=== PATIENT | female | born 1950 | race Caucasian/White ===

== ENCOUNTER 2016-06-16 07:58 | Day surgery (SDC) | payer MEDICAID ==
[2016-06-11 13:49] VITALS: BMI 25.8
[~2016-06-16 07:58] MED LIST: LACTATED RINGERS 1,000 ML IV SCH
[2016-06-16 08:22] VITALS: RESP 16; TEMP 97.7
--- NOTE | 2016-06-16 08:30 | P.GSHP ---
History of Present Illness H&P Date: 06/16/16 Chief Complaint: Colon polyp Patient today for colonoscopy. Her last colonoscopy was 5 years ago. Rectal polyp was found at that time. She does have a family history of colon cancer in her grandmother. No bowel related complaints. Past Medical History Additional Past Medical History / Comment(s): hx of polyps, seasonal allergies History of Any Multi-Drug Resistant Organisms: None Reported Past Surgical History: Adenoidectomy, Appendectomy, Tonsillectomy Additional Past Surgical History / Comment(s): D&C X6, RUPUTURED TUBAL , I&D FOR ABSCESS WOUND, ZULY CATARACTS, ZULY BUNIONECTOMY Past Anesthesia/Blood Transfusion Reactions: No Reported Reaction Past Psychological History: No Psychological Hx Reported Smoking Status: Never smoker Past Alcohol Use History: Rare Past Drug Use History: None Reported - Past Family History Mother Family Medical History: No Reported History Medications and Allergies Home Medications Medication Instructions Recorded Confirmed Type Fluticasone Nasal Feura Bush [Flonase 1 spr EA NOSTRIL DAILY 06/11/16 06/16/16 History Nasal Feura Bush] Allergies Allergy/AdvReac Type Severity Reaction Status Date / Time No Known Allergies Allergy Verified 06/11/16 13:44 Surgical - Exam Vital Signs Temp Pulse Resp BP Pulse Ox 97.7 F 88 16 137/86 99 06/16/16 08:19 06/16/16 08:19 06/16/16 08:19 06/16/16 08:19 06/16/16 08:19 Physical exam: General: Well-developed, well-nourished HEENT: Normocephalic, sclerae nonicteric Abdomen: Nontender, nondistended Extremities: No edema Neuro: Alert and oriented Assessment and Plan (1) Colon polyps Narrative/Plan: Will proceed with colonoscopy at this time. Status: Acute
[2016-06-16] MEDS ORDERED: PROPOFOL 10 MG/ML 20 ML VIAL IV ONE (08:31)
[2016-06-16] MEDS ORDERED: LIDOCAINE 1% INJ 10MG/ML (20 ML MDV) ONE (08:31)
--- NOTE | 2016-06-16 08:52 | P.PCN ---
Date of Procedure: 06/16/16 Procedure(s) Performed: PREOPERATIVE DIAGNOSIS: Colon polyps POSTOPERATIVE DIAGNOSIS: Transverse colon polyp 2 PROCEDURE: Colonoscopy with biopsy ANESTHESIA: MAC SURGEON: Saturnino Blake M.D. SPECIMENS: Transverse colon polyp ENDOSCOPIC PROCEDURE: The patient was placed on the endoscopy table in the left decubitus position. The Olympus colonoscope was inserted into the anus and passed under direct visualization to the base of the cecum. The appendiceal orifice was visualized. From that point the scope was slowly withdrawn inspecting all surfaces carefully. There were no neoplastic inflammatory or polypoid lesions throughout the cecum and ascending colon. The transverse colon there were 2 small polyps that were both removed using the biopsy forceps. The remainder of the transverse, descending, sigmoid and rectum appeared normal. There was no diverticulosis noted. Overall the patient 's prep was suboptimal. Some retained stool was seen scattered throughout the colon. Digital rectal examination was normal. The patient was taken to the recovery room in stable condition per anesthesia guidelines. RECOMMENDATIONS: Await biopsy results to determine the timing of the next endoscopy.
[2016-06-16 09:08] VITALS: BP 139/67; PULSE 69
== END 2016-06-16 09:37 | disposition home or self-care (01) ==
LOC: ORWHC2ENDO 07:58
PROVIDERS: ATTEND Surgery
DX: Z12.11 Encounter for screening for malignant neoplasm of colon (principal); D12.3 Benign neoplasm of transverse colon; Z86.010 Personal history of colon polyps; Z80.0 Family history of malignant neoplasm of digestive organs; Z79.51 Long term (current) use of inhaled steroids; Z91.09 Other allergy status, other than to drugs and biological substances
CPT/HCPCS: 88305; 45380; J2001; J2704; 99153

== ENCOUNTER → 2017-05-25 | Outpatient (CLI) | payer MEDICARE, OTHER ==
--- NOTE | 2017-05-27 10:57 | MM ---
Reason for exam: screening (asymptomatic). Last mammogram was performed 1 year and 1 month ago. History: Patient is postmenopausal. Family history of breast cancer in 2 paternal aunts, breast cancer in aunt, breast cancer in mother at age 77, and premenopausal breast cancer in cousin at age 40. Benign right mammotome panel of the right breast, January 08, 2013. Benign stereotactic core biopsy of the left breast, November 08, 2003. Benign stereotactic core biopsy of the left breast, October 27, 2000. 3 benign cyst aspirations of the right breast. 2 benign core biopsies of the left breast. Benign excisional biopsy of the left breast. Took hormonal contraceptives for 3 years. Physical Findings: A clinical breast exam by your physician is recommended on an annual basis and results should be correlated with mammographic findings. MG 3D Screening Mammo W/Cad Bilateral CC and MLO view(s) were taken. Prior study comparison: May 05, 2016, bilateral MG 3d screening mammo w/cad. April 18, 2015, bilateral MG screening mammo w CAD. Previous mammotome biopsy in the right and left breast. There is chronic nodularity in the left breast. No significant changes when compared with prior studies. ASSESSMENT: Benign, BI-RAD 2 RECOMMENDATION: Routine screening mammogram of both breasts in 1 year.
== END | disposition home or self-care (01) ==
LOC: RADMAMWWP 13:25
PROVIDERS: ATTEND Obstetrics & Gynecology
DX: Z12.31 Encounter for screening mammogram for malignant neoplasm of breast (principal); Z80.3 Family history of malignant neoplasm of breast
CPT/HCPCS: 77063; G0202

== ENCOUNTER → 2017-06-10 | Outpatient (CLI) | payer MEDICARE, OTHER | END | disposition home or self-care (01) | LOC: LABWHC1 07:38 | PROVIDERS: ATTEND Obstetrics & Gynecology | DX: E78.00 Pure hypercholesterolemia, unspecified (principal); R53.83 Other fatigue; Z13.220 Encounter for screening for lipoid disorders; Z13.1 Encounter for screening for diabetes mellitus | CPT/HCPCS: 36415; 80061; 82947; 84443 ==

== ENCOUNTER → 2018-07-24 | Outpatient (CLI) | payer MEDICARE, OTHER ==
--- NOTE | 2018-07-26 09:19 | MM ---
Reason for exam: screening (asymptomatic). Last mammogram was performed 1 year and 2 months ago. History: Patient is postmenopausal. Family history of breast cancer in 2 paternal aunts, breast cancer in aunt, breast cancer in mother at age 77, and premenopausal breast cancer in cousin at age 40. Benign right mammotome panel of the right breast, January 08, 2013. Benign stereotactic core biopsy of the left breast, November 08, 2003. Benign stereotactic core biopsy of the left breast, October 27, 2000. 3 benign cyst aspirations of the right breast. 2 benign core biopsies of the left breast. Benign excisional biopsy of the left breast. Took hormonal contraceptives for 3 years. Physical Findings: A clinical breast exam by your physician is recommended on an annual basis and results should be correlated with mammographic findings. MG 3D Screening Mammo W/Cad Bilateral CC and MLO view(s) were taken. Prior study comparison: May 25, 2017, bilateral MG 3d screening mammo w/cad. May 05, 2016, bilateral MG 3d screening mammo w/cad. There are scattered fibroglandular densities. Previous mammotome biopsy in the right and left breast. There is chronic nodularity bilaterally. 1.2 circumscribed nodule 12-1 o'clock right breast is new. ASSESSMENT: Incomplete: need additional imaging evaluation, BI-RAD 0 RECOMMENDATION: Ultrasound of the right breast. [facility] will attempt to contact patient to return for ultrasound.
== END | disposition home or self-care (01) ==
LOC: RADMAMWWP 12:44
PROVIDERS: ATTEND Obstetrics & Gynecology
DX: Z12.31 Encounter for screening mammogram for malignant neoplasm of breast (principal); Z80.3 Family history of malignant neoplasm of breast
CPT/HCPCS: 77063; 77067

== ENCOUNTER → 2018-08-01 | Outpatient (CLI) | payer MEDICARE, OTHER | END | disposition home or self-care (01) | LOC: LABWHC1 09:09 | PROVIDERS: ATTEND Obstetrics & Gynecology | DX: Z13.1 Encounter for screening for diabetes mellitus (principal); Z13.220 Encounter for screening for lipoid disorders | CPT/HCPCS: 36415; 80061; 82947; 84443 ==

== ENCOUNTER → 2018-08-01 | Outpatient (CLI) | payer MEDICARE, OTHER ==
--- NOTE | 2018-08-01 10:53 | USB ---
Reason for exam: additional evaluation requested from abnormal screening. History: Patient is postmenopausal. Family history of breast cancer in 2 paternal aunts, breast cancer in aunt, breast cancer in mother at age 77, and premenopausal breast cancer in cousin at age 40. Benign right mammotome panel of the right breast, January 08, 2013. Benign stereotactic core biopsy of the left breast, November 08, 2003. Benign stereotactic core biopsy of the left breast, October 27, 2000. 3 benign cyst aspirations of the right breast. 2 benign core biopsies of the left breast. Benign excisional biopsy of the left breast. Took hormonal contraceptives for 3 years. Physical Findings: Nurse Summary: palpable lump (nurse dw). US Breast Workup Limited RT Right limited breast ultrasound including focal area of concern, retroareolar and axilla demonstrates a 1.3 x 0.6 x 1.0cm cystic, benign lesion at 12 o'clock likely corresponds to the mammographic finding. Precautionary 6 month follow up recommended. These results were verbally communicated with the patient and result sheet given to the patient on 08/01/18. ASSESSMENT: Probably benign, BI-RAD 3 RECOMMENDATION: Follow-up diagnostic mammogram of the right breast in 6 months.
== END | disposition home or self-care (01) ==
LOC: RADUSWWP 09:57
PROVIDERS: ATTEND Obstetrics & Gynecology
DX: R92.8 Other abnormal and inconclusive findings on diagnostic imaging of breast (principal)

== ENCOUNTER → 2019-02-21 | Outpatient (CLI) | payer MEDICARE, OTHER ==
--- NOTE | 2019-02-22 08:41 | MM ---
Reason for exam: follow-up at short interval from prior study. Last mammogram was performed 7 months ago. History: Patient is postmenopausal. Family history of breast cancer in mother at age 78, breast cancer in 2 paternal aunts, breast cancer in aunt, and premenopausal breast cancer in cousin at age 40. Benign right mammotome panel of the right breast, January 08, 2013. Benign stereotactic core biopsy of the left breast, November 08, 2003. Benign stereotactic core biopsy of the left breast, October 27, 2000. 3 benign cyst aspirations of the right breast. 2 benign core biopsies of the left breast. Benign excisional biopsy of the left breast. Took hormonal contraceptives for 3 years. Physical Findings: Nurse did not find any significant physical abnormalities on exam. MG 3D Diag Mammo W/Cad RT CC and MLO view(s) were taken of the right breast. Prior study comparison: July 24, 2018, bilateral MG 3d screening mammo w/cad. May 25, 2017, bilateral MG 3d screening mammo w/cad. The breast tissue is heterogeneously dense. This may lower the sensitivity of mammography. There is chronic nodularity in the right breast. No significant changes when compared with prior studies. ASSESSMENT: Benign, BI-RAD 2 RECOMMENDATION: Return to routine screening mammogram schedule for both breasts.
== END | disposition home or self-care (01) ==
LOC: RADMAMWWP 10:12
PROVIDERS: ATTEND Obstetrics & Gynecology
DX: R92.8 Other abnormal and inconclusive findings on diagnostic imaging of breast (principal)
CPT/HCPCS: 77065; G0279; 77061

== ENCOUNTER → 2019-07-31 | Outpatient (CLI) | payer MEDICARE, OTHER ==
--- NOTE | 2019-07-31 15:25 | BD ---
EXAMINATION TYPE: Axial Bone Density DATE OF EXAM: 07/31/2019 COMPARISON: 2016 CLINICAL HISTORY: Height: 68 inches Weight: 177.6 FRAX RISK QUESTIONS: Alcohol (3 or more units per day): no Family History (Parent hip fracture): no Glucocorticoids (More than 3mos): no (Ex: prednisone, prednisolone, methylprednisolone, dexamethasone, and hydrocortisone). History of Fracture in Adulthood: yes Secondary Osteoporosis: 1. Type 1 Diabetes: no 2. Hyperthyroidism: no 3. Menopause before 45: no 4. Malnutrition: no 5. Chronic liver disease: no Rheumatoid Arthritis: no Current Tobacco Use: no RISK FACTORS HISTORY OF: Family History of Osteoporosis: no Active: yes Diet low in dairy products/other sources of calcium: no Postmenopausal woman: yes Take estrogen and/or progesterone medications: not now How long: hormonal contraceptives about 3 years Lost more than 2 inches in height since high school: no Frequent falls: no Poor Health: no Hyperparathyroidism: no Adrenal Insufficiency: no MEDICATIONS: Prednisone or other steroids: no Thyroid Medications: no Osteoporosis Medications: not now Which medication: Fosamax How Long: more than a year, but not very long Additional Medications: Additional History: EXAM MEASUREMENTS: Bone mineral densitometry was performed using the [employer] System. Bone mineral density as measured about the Lumbar spine is: ----- L1-L4(G/cm2): 1.175 T Score Values are as follows: ----- L2: 0.0 ----- L3: -0.1 ----- L4: -0.6 ----- L1-L4: 0.0 Bone mineral density has: Increased 3.6% since study of: 05/05/2016 Bone mineral density about the R hip (g/cm2): 0.928 Bone mineral density about the L hip (g/cm2): 0.947 T Score values are as follows: -----R Neck: -0.8 -----L Neck: -0.7 -----R Total: -0.1 -----L Total: 0.0 Bone mineral density has: Increased 0.6% since study of: 05/05/2016 IMPRESSION: Normal (Values between +1 and -1 indicate normal bone mass). Consider repeating this study in 5 year s or sooner if there is some new clinical indication. NOTE: T-SCORE=SD OF THE YOUNG ADULT MEAN.
--- NOTE | 2019-08-01 09:08 | MM ---
Reason for exam: screening (asymptomatic). Last mammogram was performed 5 months ago. History: Patient is postmenopausal. Family history of breast cancer in mother at age 78, breast cancer in 2 paternal aunts, breast cancer in aunt, and premenopausal breast cancer in paternal cousin at age 40. Benign right mammotome panel of the right breast, January 08, 2013. Benign stereotactic core biopsy of the left breast, November 08, 2003. Benign stereotactic core biopsy of the left breast, October 27, 2000. 3 benign cyst aspirations of the right breast. 2 benign core biopsies of the left breast. Benign excisional biopsy of the left breast. Took hormonal contraceptives for 3 years. Physical Findings: A clinical breast exam by your physician is recommended on an annual basis and results should be correlated with mammographic findings. MG 3D Screening Mammo W/Cad Bilateral CC, MLO, and XCCL view(s) were taken. Prior study comparison: February 21, 2019, right breast MG 3d diag mammo w/cad RT. August 01, 2018, right breast US breast workup limited RT. July 24, 2018, bilateral MG 3d screening mammo w/cad. May 25, 2017, bilateral MG 3d screening mammo w/cad. The breast tissue is heterogeneously dense. This may lower the sensitivity of mammography. Finding: There are typically benign circumscribed round oval masses in both breasts similar priors other than growth of the largest on the right, previously proven cyst on ultrasound. There are benign appearing calcifications. No suspicious abnormality. Bilateral biopsy markers. No significant changes in finding since February 21, 2019, August 01, 2018, July 24, 2018, and May 25, 2017. ASSESSMENT: Benign, BI-RAD 2 RECOMMENDATION: Routine screening mammogram of both breasts in 1 year.
== END | disposition home or self-care (01) ==
LOC: RADMAMWWP 08:47
PROVIDERS: ATTEND Obstetrics & Gynecology
DX: Z12.31 Encounter for screening mammogram for malignant neoplasm of breast (principal); N95.1 Menopausal and female climacteric states; Z13.228 Encounter for screening for other metabolic disorders; E78.00 Pure hypercholesterolemia, unspecified
CPT/HCPCS: 36415; 77063; 77067; 77080; 80061; 82306

== ENCOUNTER → 2020-09-03 | Outpatient (CLI) | payer MEDICARE ==
[2020-09-03 20:29] LABS: HCT 46.5 % (37.2-46.3); HGB 15.6 g/dL (12.0-15.0); MCH 31.4 pg (27.0-32.0); MCHC 33.5 g/dL (32.0-37.0); MCV 93.6 fL (80.0-97.0); Mean Platelet Volume 11.4 fL (9.5-12.2); Platelet Count 179 X 10*3/uL (140-440); RBC 4.97 X 10*6/uL (4.10-5.20); RDW 13.6 % (11.5-14.5); WBC 5.61 X 10*3/uL (4.50-10.00)
[2020-09-03 21:09] LABS: African American GFR (CKD) 75.6 (60.0-200.0); Albumin 4.9 g/dL (3.80-4.90); Albumin/Globulin Ratio 2.13 (1.60-3.17); Anion Gap 15.4 mmol/L (4.00-12.00); BUN/Creat Ratio 16.67 Ratio (12.00-20.00); Calcium 9.7 mg/dL (8.7-10.3); Carbon Dioxide 21.6 mmol/L (21.6-31.8); Chol/HDL Ratio 3.3; Globulin 2.3 g/dL (1.6-3.3); LDL Cholesterol,Calculated 114.2 mg/dL (0.0-131.0); Non-African American GFR(CKD) 65.2 (60.0-200.0); Potassium 4.2 mmol/L (3.5-5.5); Total Bilirubin 0.6 mg/dL (0.3-1.2); Total Protein 7.2 g/dL (6.2-8.2); VLDL Calculation 32.8 mg/dL (5.00-40.00)
[2020-09-03 22:25] LABS: Hemoglobin A1C 5.4 % (4.0-6.0)
== END | disposition home or self-care (01) ==
LOC: LABWHC1 09:38
PROVIDERS: ATTEND Obstetrics & Gynecology
DX: Z13.220 Encounter for screening for lipoid disorders (principal); Z13.1 Encounter for screening for diabetes mellitus
CPT/HCPCS: 36415; 80053; 80061; 82306; 83036; 84439; 84443; 84479; 85027

== ENCOUNTER → 2020-09-12 | Outpatient (CLI) | payer MEDICARE ==
--- NOTE | 2020-09-16 07:37 | MM ---
Reason for exam: screening (asymptomatic). Last mammogram was performed 1 year and 1 month ago. History: Patient is postmenopausal. Family history of breast cancer in mother at age 78, breast cancer in 2 paternal aunts, breast cancer in aunt, and premenopausal breast cancer in paternal cousin at age 40. Benign right mammotome panel of the right breast, January 08, 2013. Benign stereotactic core biopsy of the left breast, November 08, 2003. Benign stereotactic core biopsy of the left breast, October 27, 2000. 3 benign cyst aspirations of the right breast. 2 benign core biopsies of the left breast. Benign excisional biopsy of the left breast. Took hormonal contraceptives for 3 years. Physical Findings: A clinical breast exam by your physician is recommended on an annual basis and results should be correlated with mammographic findings. MG 3D Screening Mammo W/Cad Bilateral CC and MLO view(s) were taken. Prior study comparison: July 31, 2019, bilateral MG 3d screening mammo w/cad. February 21, 2019, right breast MG 3d diag mammo w/cad RT. The breast tissue is heterogeneously dense. This may lower the sensitivity of mammography. Previous mammotome biopsy in the right and left breast. There is chronic nodularity bilaterally. No significant changes when compared with prior studies. ASSESSMENT: Benign, BI-RAD 2 RECOMMENDATION: Routine screening mammogram of both breasts in 1 year.
== END | disposition home or self-care (01) ==
LOC: RADMAMWWP 13:26
PROVIDERS: ATTEND Obstetrics & Gynecology
DX: Z12.31 Encounter for screening mammogram for malignant neoplasm of breast (principal); Z80.3 Family history of malignant neoplasm of breast; Z78.0 Asymptomatic menopausal state
CPT/HCPCS: 77063; 77067

== ENCOUNTER → 2021-08-18 | Outpatient (CLI) | payer MEDICARE ==
[2021-08-18 10:31] LABS: HCT 45.2 % (37.2-46.3); MCH 30.5 pg (27.0-32.0); MCHC 33.2 g/dL (32.0-37.0); MCV 91.9 fL (80.0-97.0); Mean Platelet Volume 10.5 fL (9.5-12.2); NRBC Per 100 WBC 0 /100 WBCS (0.0-0.0); Platelet Count 170 X 10*3/uL (140-440); RBC 4.92 X 10*6/uL (4.10-5.20); RDW 13.6 % (11.5-14.5); WBC 5.05 X 10*3/uL (4.50-10.00)
[2021-08-18 10:57] LABS: Chol/HDL Ratio 3.03 Ratio; Glucose 104 mg/dL (70-110); LDL Cholesterol,Calculated 115.9 mg/dL (0.0-131.0)
== END | disposition home or self-care (01) ==
LOC: LABWHC1 07:46
PROVIDERS: ATTEND Obstetrics & Gynecology
DX: Z13.0 Encounter for screening for diseases of the blood and blood-forming organs and certain disorders involving the immune mechanism (principal); Z13.1 Encounter for screening for diabetes mellitus; Z13.228 Encounter for screening for other metabolic disorders; Z13.220 Encounter for screening for lipoid disorders; E78.00 Pure hypercholesterolemia, unspecified; R53.83 Other fatigue
CPT/HCPCS: 36415; 80061; 82306; 82947; 85027

== ENCOUNTER → 2021-09-14 | Outpatient (CLI) | payer MEDICARE ==
--- NOTE | 2021-09-16 10:44 | MM ---
Reason for exam: screening (asymptomatic). Last mammogram was performed 1 year ago. History: Patient is postmenopausal. Family history of breast cancer in mother at age 78, breast cancer in 2 paternal aunts, breast cancer in aunt, and premenopausal breast cancer in paternal cousin at age 40. Benign right mammotome panel of the right breast, January 08, 2013. Benign stereotactic core biopsy of the left breast, November 08, 2003. Benign stereotactic core biopsy of the left breast, October 27, 2000. 3 benign cyst aspirations of the right breast. 2 benign core biopsies of the left breast. Benign excisional biopsy of the left breast. Took hormonal contraceptives for 3 years. Physical Findings: A clinical breast exam by your physician is recommended on an annual basis and results should be correlated with mammographic findings. MG 3D Screening Mammo W/Cad Bilateral CC and MLO view(s) were taken. Prior study comparison: September 12, 2020, bilateral MG 3d screening mammo w/cad. July 31, 2019, bilateral MG 3d screening mammo w/cad. February 21, 2019, right breast MG 3d diag mammo w/cad RT. There are scattered fibroglandular densities. Previous mammotome biopsy in the right and left breast. There is chronic nodularity in the left breast. No significant changes when compared with prior studies. ASSESSMENT: Benign, BI-RAD 2 RECOMMENDATION: Routine screening mammogram of both breasts in 1 year.
== END | disposition home or self-care (01) ==
LOC: RADMAMWWP 08:59
PROVIDERS: ATTEND Obstetrics & Gynecology
DX: Z12.31 Encounter for screening mammogram for malignant neoplasm of breast (principal); Z78.0 Asymptomatic menopausal state; Z80.3 Family history of malignant neoplasm of breast
CPT/HCPCS: 77063; 77067

== ENCOUNTER → 2022-08-18 | Outpatient (CLI) | payer MEDICARE ==
[2022-08-18 14:39] LABS: HCT 45.8 % (37.2-46.3); HGB 15.5 g/dL (12.0-15.0); MCH 31.3 pg (27.0-32.0); MCHC 33.8 g/dL (32.0-37.0); MCV 92.5 fL (80.0-97.0); Mean Platelet Volume 10.2 fL (9.5-12.2); NRBC Per 100 WBC 0 /100 WBCS (0.0-0.0); Platelet Count 197 X 10*3/uL (140-440); RBC 4.95 X 10*6/uL (4.10-5.20); RDW 13.2 % (11.5-14.5); WBC 5.59 X 10*3/uL (4.50-10.00)
[2022-08-18 17:09] LABS: Chol/HDL Ratio 3.19 Ratio; Glucose 104 mg/dL (70-110); LDL Cholesterol,Calculated 132.2 mg/dL (0.0-131.0)
== END | disposition home or self-care (01) ==
LOC: LABWHC1 08:47
PROVIDERS: ATTEND Obstetrics & Gynecology
DX: Z13.220 Encounter for screening for lipoid disorders (principal); Z13.1 Encounter for screening for diabetes mellitus; Z13.228 Encounter for screening for other metabolic disorders; Z13.0 Encounter for screening for diseases of the blood and blood-forming organs and certain disorders involving the immune mechanism; Z13.29 Encounter for screening for other suspected endocrine disorder; I10 Essential (primary) hypertension; R53.83 Other fatigue
CPT/HCPCS: 36415; 80061; 82306; 82947; 85027

== ENCOUNTER → 2022-09-15 | Outpatient (CLI) | payer MEDICARE ==
--- NOTE | 2022-09-15 11:47 | MM ---
Reason for Exam: Screening (asymptomatic). Last screening mammogram was performed 12 month(s) ago. Patient History: Menarche at age 13. First Full-Term at age 23. Postmenopausal. Patient used Hormonal Contraceptives for 3 years. Benign Core Biopsy on the left side. Benign Core Biopsy on the left side. Benign Cyst Aspiration on the right side. Benign Cyst Aspiration on the right side. Benign Cyst Aspiration on the right side. Benign Excisional Biopsy on the left side. 01/08/2013, Benign Core Biopsy on the right side. 11/08/2003, Benign Stereotactic Core Biopsy on the left side. 10/27/2000, Benign Stereotactic Core Biopsy on the left side. Paternal cousin had breast cancer, age 40. Paternal aunt had breast cancer. Paternal aunt had breast cancer. Maternal aunt had breast cancer. Mother had breast cancer, age 78. Risk Values: Ailyn 5 year model risk: 5.0%. NCI Lifetime model risk: 12.6%. Prior Study Comparison: 07/31/2019 Bilateral Screening Mammogram, [facility]. 09/12/2020 Bilateral Screening Mammogram, [facility]. 09/14/2021 Bilateral Screening Mammogram, [facility]. Tissue Density: The breast tissue is heterogeneously dense. This may lower the sensitivity of mammography. Findings: Analyzed By CAD. There is no suspicious group of microcalcifications or new suspicious mass in either breast. Chronic nodularity bilaterally. Previous mammotome biopsy in both breasts. Overall Assessment: Benign, BI-RAD 2 Management: Screening Mammogram of both breasts in 1 year. A clinical breast exam by your physician is recommended on an annual basis and results should be correlated with mammographic findings. Electronically signed and approved by: Sigifredo Bonilla D.O.
== END | disposition home or self-care (01) ==
LOC: RADMAMWWP 09:53
PROVIDERS: ATTEND Obstetrics & Gynecology
DX: Z12.31 Encounter for screening mammogram for malignant neoplasm of breast (principal); Z80.3 Family history of malignant neoplasm of breast; Z78.0 Asymptomatic menopausal state
CPT/HCPCS: 77063; 77067

== ENCOUNTER → 2023-08-25 | Outpatient (CLI) | payer MEDICARE ==
[2023-08-25 11:45] LABS: ALT 26 U/L (8-44); AST 23 U/L (13-35); Albumin 4.7 g/dL (3.8-4.9); Albumin/Globulin Ratio 1.74 Ratio (1.60-3.17); Alkaline Phosphatase 82 U/L (41-126); Blood Urea Nitrogen 18.9 mg/dL (9.0-27.0); Calcium 9.8 mg/dL (8.7-10.3); Carbon Dioxide 28.6 mmol/L (21.6-31.8); Chloride 102 mmol/L (96-109); Chol/HDL Ratio 3.16 Ratio; Globulin 2.7 g/dL (1.6-3.3); Glucose 111 mg/dL (70-110); LDL Cholesterol,Calculated 139.3 mg/dL (0.0-131.0); Potassium 4.7 mmol/L (3.5-5.5); Sodium 140 mmol/L (135-145); Total Bilirubin 0.4 mg/dL (0.3-1.2); Total Protein 7.4 g/dL (6.2-8.2)
[2023-08-25 12:30] LABS: Basophils # (A) 0.04 X 10*3/uL (0.00-0.10); Basophils % (A) 0.7 %; Eosinophils # (A) 0.06 X 10*3/uL (0.04-0.35); Eosinophils % (A) 1.1 %; HCT 47.6 % (37.2-46.3); HGB 15.9 g/dL (12.0-15.0); Lymphocytes % (A) 29.3 %; MCH 31.2 pg (27.0-32.0); MCHC 33.4 g/dL (32.0-37.0); MCV 93.3 FL (80.0-97.0); Mean Platelet Volume 10.8 FL (9.5-12.2); Monocytes # (A) 0.29 X 10*3/uL (0.20-1.00); Monocytes % (A) 5.3 %; NRBC Per 100 WBC 0 X 10*3/uL (0.00-0.01); Neutrophils # (A) 3.46 X 10*3/uL (1.80-7.70); Neutrophils % (A) 63.2 %; Platelet Count 185 X 10*3/uL (140-440); RDW 13.5 % (11.5-14.5); WBC 5.47 X 10*3/uL (4.50-10.00)
== END | disposition home or self-care (01) ==
LOC: LABWHC1 08:10
PROVIDERS: ATTEND Internal Medicine Geriatric Medicine
DX: E03.9 Hypothyroidism, unspecified (principal); E78.5 Hyperlipidemia, unspecified; D64.9 Anemia, unspecified; M81.0 Age-related osteoporosis without current pathological fracture; R73.9 Hyperglycemia, unspecified
CPT/HCPCS: 36415; 80053; 80061; 82306; 83036; 84439; 84443; 85025

== ENCOUNTER → 2023-09-19 | Outpatient (CLI) | payer MEDICARE ==
--- NOTE | 2023-09-19 11:47 | BD ---
EXAMINATION TYPE: Axial Bone Density DATE OF EXAM: 09/19/2023 CLINICAL HISTORY: 73 years old Female. ICD-10 CODE: M81.0 AGE-RELATED OSTEOPOROSIS W/ Height: 67.5 Weight: 179 FRAX RISK QUESTIONS: Alcohol (3 or more units per day): no Family History (Parent hip fracture): no Glucocorticoids (More than 3mos): no (Ex: prednisone, prednisolone, methylprednisolone, dexamethasone, and hydrocortisone). History of Fracture in Adulthood: yes Secondary Osteoporosis: 1. Type 1 Diabetes: no 2. Hyperthyroidism: no 3. Menopause before 45: no 4. Malnutrition: no 5. Chronic liver disease: no Rheumatoid Arthritis: no Current Tobacco Use: no RISK FACTORS HISTORY OF: Surgery to Spine/Hip(right/left)/Wrist (right/left): no EXAM MEASUREMENTS: Bone mineral densitometry was performed using the [employer] System. Bone mineral density as measured about the Lumbar spine is: ----- L1-L4(G/cm2): 1.175 T Score Values are as follows: ----- L1: 0.4 ----- L2: -0.4 ----- L3: 0.2 ----- L4: -0.4 ----- L1-L4: 0.0 Z Score Values are as follows: ----- L1: 1.6 ----- L2: 0.8 ----- L3: 1.4 ----- L4: 0.8 ----- L1-L4: 1.1 Bone mineral density has changed: 0 % since study of: 07.31.2019 Bone mineral density about the R hip (g/cm2): 0.992 Bone mineral density about the L hip (g/cm2): 0.996 T Score values are as follows: -----R Neck: -0.9 -----L Neck: -0.8 -----R Total: -0.1 -----L Total: -0.1 Z Score values are as follows: -----R Neck: 0.6 -----L Neck: 0.7 -----R Total: 1.1 -----L Total: 1.1 Bone mineral density has changed: -1.0 % since study of: 07.31.2019 FRAX%s: The graph provided illustrates a 14.3% chance for a major osteoporotic fx and a 1.6% chance f or the hips probability for fx in 10 years time. IMPRESSION: Normal (Values between +1 and -1 indicate normal bone mass). Consider repeating this study in 5 year s or sooner if there is some new clinical indication. NOTE: T-SCORE=SD OF THE YOUNG ADULT MEAN.
--- NOTE | 2023-09-20 19:36 | MM ---
Reason for Exam: Screening (asymptomatic). Last screening mammogram was performed 12 month(s) ago. Patient History: Menarche at age 13. First Full-Term at age 23. Postmenopausal. Patient used Hormonal Contraceptives for 3 years. Benign Core Biopsy on the left side. Benign Core Biopsy on the left side. Benign Cyst Aspiration on the right side. Benign Cyst Aspiration on the right side. Benign Cyst Aspiration on the right side. Benign Excisional Biopsy on the left side. 01/08/2013, Benign Core Biopsy on the right side. 11/08/2003, Benign Stereotactic Core Biopsy on the left side. 10/27/2000, Benign Stereotactic Core Biopsy on the left side. Paternal cousin had breast cancer, age 40. Paternal aunt had breast cancer. Paternal aunt had breast cancer. Maternal aunt had breast cancer. Mother had breast cancer, age 78. Risk Values: Ailyn 5 year model risk: 5.0%. NCI Lifetime model risk: 12.0%. Prior Study Comparison: 09/12/2020 Bilateral Screening Mammogram, [facility]. 09/14/2021 Bilateral Screening Mammogram, [facility]. 09/15/2022 Bilateral MG 3D screening mammo w/cad, [facility]. Tissue Density: There are scattered areas of fibroglandular density. Findings: Analyzed By CAD. Some fluctuation in chronic bilateral nodularity in an overall benign pattern. Microclip right breast from prior biopsy. There is no suspicious group of microcalcifications or new suspicious mass in either breast. Overall Assessment: Benign, BI-RAD 2 Management: Screening Mammogram of both breasts in 1 year. See note below in regards to the patient's increased 5 year Ailyn score. Patient should continue monthly self-breast exams. A clinical breast exam by your physician is recommended on an annual basis. This exam should not preclude additional follow-up of suspicious palpable abnormalities. Note on Ailyn scores and lifetime risk: 1. A Ailyn score greater than 3% is considered moderate risk. If this is the case, consider specialist referral to assess eligibility for a risk reducing agent. 2. If overall lifetime risk for the development of breast cancer is 20% or higher, the patient may qualify for future screening with alternating mammogram and breast MRI. Electronically signed and approved by: Charu Escoto M.D. Radiologist
== END | disposition home or self-care (01) ==
LOC: RADBDWWP 10:43
PROVIDERS: ATTEND Internal Medicine Geriatric Medicine
DX: Z12.31 Encounter for screening mammogram for malignant neoplasm of breast (principal); M81.0 Age-related osteoporosis without current pathological fracture; Z80.3 Family history of malignant neoplasm of breast
CPT/HCPCS: 77063; 77067; 77080

== ENCOUNTER → 2024-03-09 | Outpatient (CLI) | payer MEDICARE ==
[2024-03-09 15:05] LABS: Basophils # (A) 0.02 X 10*3/uL (0.00-0.10); Basophils % (A) 0.3 %; Eosinophils # (A) 0.07 X 10*3/uL (0.04-0.35); Eosinophils % (A) 1.2 %; Lymphocytes # (A) 1.61 X 10*3/uL (0.90-5.00); Lymphocytes % (A) 27.7 %; MCH 30.5 pg (27.0-32.0); MCHC 33.3 g/dL (32.0-37.0); MCV 91.5 FL (80.0-97.0); Mean Platelet Volume 10.4 FL (9.5-12.2); Monocytes # (A) 0.31 X 10*3/uL (0.20-1.00); Monocytes % (A) 5.3 %; NRBC Per 100 WBC 0 X 10*3/uL (0.00-0.01); Neutrophils # (A) 3.79 X 10*3/uL (1.80-7.70); Neutrophils % (A) 65.3 %; Platelet Count 173 X 10*3/uL (140-440); RBC 4.92 X 10*6/uL (4.10-5.20); RDW 13.2 % (11.5-14.5); WBC 5.81 X 10*3/uL (4.50-10.00)
[2024-03-09 15:23] LABS: ALT 17 U/L (8-44); AST 16 U/L (13-35); Albumin 4.4 g/dL (3.8-4.9); Albumin/Globulin Ratio 1.76 Ratio (1.60-3.17); Alkaline Phosphatase 80 U/L (41-126); BUN/Creat Ratio 19.25 Ratio (12.00-20.00); Blood Urea Nitrogen 15.4 mg/dL (9.0-27.0); Calcium 9.6 mg/dL (8.7-10.3); Carbon Dioxide 27.6 mmol/L (21.6-31.8); Chloride 104 mmol/L (96-109); Chol/HDL Ratio 3.83 Ratio; Globulin 2.5 g/dL (1.6-3.3); Glucose 104 mg/dL (70-110); Potassium 4.3 mmol/L (3.5-5.5); Sodium 142 mmol/L (135-145); T4, Free (Free Thyroxine) 1.05 ng/dL (0.80-1.80); Total Bilirubin 0.4 mg/dL (0.3-1.2); Total Protein 6.9 g/dL (6.2-8.2)
== END | disposition home or self-care (01) ==
LOC: LABWHC1 09:22
PROVIDERS: ATTEND Internal Medicine Geriatric Medicine
CPT/HCPCS: 36415; 80053; 80061; 84439; 84443; 85025

== ENCOUNTER → 2024-09-19 | Outpatient (CLI) | payer MEDICARE ==
--- NOTE | 2024-09-19 10:07 | MM ---
Reason for Exam: Screening (asymptomatic). Last screening mammogram was performed 12 month(s) ago. Patient History: Menarche at age 13. First Full-Term at age 23. Postmenopausal. Patient used Hormonal Contraceptives for 3 years. Benign Core Biopsy on the left side. Benign Core Biopsy on the left side. Benign Cyst Aspiration on the right side. Benign Cyst Aspiration on the right side. Benign Cyst Aspiration on the right side. Benign Excisional Biopsy on the left side. 01/08/2013, Benign Core Biopsy on the right side. 11/08/2003, Benign Stereotactic Core Biopsy on the left side. 10/27/2000, Benign Stereotactic Core Biopsy on the left side. Paternal cousin had breast cancer, age 40. Paternal aunt had breast cancer. Paternal aunt had breast cancer. Maternal aunt had breast cancer. Mother had breast cancer, age 78. Risk Values: Ailyn 5 year model risk: 5.0%. NCI Lifetime model risk: 11.3%. Prior Study Comparison: 09/14/2021 Bilateral Screening Mammogram, [facility]. 09/15/2022 Bilateral MG 3D screening mammo w/cad, [facility]. 09/19/2023 Bilateral MG 3D screening mammo w/cad, [facility]. Tissue Density: The breasts are heterogeneously dense, which may obscure small masses. Findings: Analyzed By CAD. There is no suspicious group of microcalcifications or new suspicious mass in either breast. Overall Assessment: Benign, BI-RAD 2 Management: Screening Mammogram of both breasts in 1 year. . Patient should continue monthly self-breast exams. A clinical breast exam by your physician is recommended on an annual basis. This exam should not preclude additional follow-up of suspicious palpable abnormalities. Note on Ailyn scores and lifetime risk: 1. A Ailyn score greater than 3% is considered moderate risk. If this is the case, consider specialist referral to assess eligibility for a risk reducing agent. 2. If overall lifetime risk for the development of breast cancer is 20% or higher, the patient may qualify for future screening with alternating mammogram and breast MRI. [facility], , 09/19/2024 10:05 AM. Electronically signed and approved by: Uriah Almonte M.D. Radiologis
[2024-09-19 16:03] LABS: Basophils # (A) 0.03 X 10*3/uL (0.00-0.10); Basophils % (A) 0.5 %; Eosinophils # (A) 0.05 X 10*3/uL (0.04-0.35); Eosinophils % (A) 0.9 %; HGB 15.5 g/dL (12.0-15.0); Lymphocytes # (A) 1.52 X 10*3/uL (0.90-5.00); Lymphocytes % (A) 26.3 %; MCH 30.9 pg (27.0-32.0); MCV 93.8 FL (80.0-97.0); Mean Platelet Volume 11.3 FL (9.5-12.2); Monocytes # (A) 0.29 X 10*3/uL (0.20-1.00); NRBC Per 100 WBC 0 X 10*3/uL (0.00-0.01); Neutrophils # (A) 3.87 X 10*3/uL (1.80-7.70); Neutrophils % (A) 67.1 %; Platelet Count 167 X 10*3/uL (140-440); RBC 5.01 X 10*6/uL (4.10-5.20); RDW 13.9 % (11.5-14.5); WBC 5.77 X 10*3/uL (4.50-10.00)
[2024-09-19 17:30] LABS: Chol/HDL Ratio 2.75 Ratio; LDL Cholesterol,Calculated 94.2 mg/dL (0.0-131.0)
== END | disposition home or self-care (01) ==
LOC: LABWHC1 08:25
PROVIDERS: ATTEND Internal Medicine Geriatric Medicine
DX: Z12.31 Encounter for screening mammogram for malignant neoplasm of breast (principal); R92.333 Mammographic heterogeneous density, bilateral breasts; Z00.00 Encounter for general adult medical examination without abnormal findings; E78.5 Hyperlipidemia, unspecified; R73.9 Hyperglycemia, unspecified; E03.9 Hypothyroidism, unspecified; M81.0 Age-related osteoporosis without current pathological fracture; Z80.3 Family history of malignant neoplasm of breast; Z78.0 Asymptomatic menopausal state; Z92.0 Personal history of contraception
CPT/HCPCS: 36415; 77063; 77067; 80053; 80061; 82306; 83036; 84443; 85025

== ENCOUNTER → 2024-09-21 | Outpatient (CLI) | payer MEDICARE ==
[2024-09-21 15:41] LABS: ALT 33 U/L (8-44); AST 28 U/L (13-35); Albumin 4.6 g/dL (3.8-4.9); Albumin/Globulin Ratio 1.92 Ratio (1.60-3.17); Alkaline Phosphatase 96 U/L (41-126); BUN/Creat Ratio 19.44 Ratio (12.00-20.00); Blood Urea Nitrogen 17.5 mg/dL (9.0-27.0); Calcium 9.7 mg/dL (8.7-10.3); Carbon Dioxide 26.1 mmol/L (21.6-31.8); Chloride 101 mmol/L (96-109); Globulin 2.4 g/dL (1.6-3.3); Glucose 107 mg/dL (70-110); Potassium 4.3 mmol/L (3.5-5.5); Sodium 140 mmol/L (135-145); Total Bilirubin 0.5 mg/dL (0.3-1.2)
== END | disposition home or self-care (01) ==
LOC: LABWHC1 09:06
PROVIDERS: ATTEND Internal Medicine Geriatric Medicine
DX: Z00.00 Encounter for general adult medical examination without abnormal findings (principal); E78.5 Hyperlipidemia, unspecified; E03.9 Hypothyroidism, unspecified; M81.0 Age-related osteoporosis without current pathological fracture; R73.9 Hyperglycemia, unspecified
CPT/HCPCS: 36415; 80053